=== PATIENT | male | born 1955 | race Caucasian/White ===

== ENCOUNTER 2017-06-18 21:11 | Inpatient (IN) | payer OTHER ==
[~2017-06-18] VITALS: Ht 172.7 cm; Wt 98.5 kg
[~2017-06-18 21:11] MED LIST: ADVAIR 250/501 DISK IH; ALBUTEROL SULF8.5 GM IH; CILOSTAZOL100 MG PO; COREG12.5 M1 PO; ERGOCALCIF50000 UNIT PO; LITE COAT ASPI325 M1 PO; PLAVIX75 MG PO; PREDNISONE20 MG PO; SYNTHROID200 MCG PO; SYNTHROID50 MCG PO; WELLBUTRIN SR150 MG PO; ZITHROMAX Z-PA250 MG PO
[2017-06-19] VITALS (10 sets, daily range): BP systolic 114–195; BP diastolic 61–80
[2017-06-19 17:00] LABS: METH RESISTANT S AUREUS PCR NEGATIVE (NEGATIVE)
[2017-06-19 17:41] LABS: PROBE CHECK PASS; SPECIMEN PROCESSING CONTROL PASS
[2017-06-20] VITALS: BP 104/59
[2017-06-20 02:00] VITALS: BP 136/76
[2017-06-20 05:00] VITALS: BP 127/62
[2017-06-20 07:00] VITALS: BP 178/75
[2017-06-20] MEDS ORDERED: HYDROCODON-ACE1 EAC7 PO (08:49)
[2017-06-20 09:00] VITALS: BP 90/68
[2017-06-20 10:00] VITALS: BP 118/58
== END 2017-06-20 10:22 | disposition home or self-care (01) | DRG 39 ==
LOC: ENRESERV 21:11 → 2SOUTH 06-19 09:35 → ENRESERV 06-19 13:12 → SDC 06-19 13:46 → EDSTATUS 06-19 13:46 → 2SOUTH 06-19 13:49 → ENRESERV 06-19 13:53 → 2SOUTH 06-19 14:43 → 4WEST 06-19 15:38 → ENRESERV 06-19 21:35 → 4WEST 06-20 10:22
PROVIDERS: Surgery
DX: I65.22 Occlusion and stenosis of left carotid artery (principal); I10 Essential (primary) hypertension; F17.200 Nicotine dependence, unspecified, uncomplicated; Z79.82 Long term (current) use of aspirin; Z80.1 Family history of malignant neoplasm of trachea, bronchus and lung
CPT/HCPCS: 87641; 93005; 94640; 94640 76; 94799; C1768; J0360; J0690; J1644; J1650; J2250; J2720; J2795; J3010; J7050; J7120

== ENCOUNTER 2017-08-14 09:43 | Day surgery (SDC) | payer OTHER ==
[~2017-08-14] VITALS: Ht 170.2 cm; Wt 98.9 kg
[~2017-08-14 09:43] MED LIST changes: +HYDROCODON-ACE1 EAC7 PO
[2017-08-14 11:06] VITALS: BP 185/85
== END 2017-08-14 17:33 | disposition left against medical advice (07) ==
LOC: 2SOUTH 09:43 → SDC 09:43 → 2SOUTH 12:30 → EDSTATUS 14:05 → 2SOUTH 14:50 → SDC 17:33
PROC: 03JYXZZ Inspection of Upper Artery, External Approach (ICD-10-PCS; principal; 2017-08-14)
DX: I65.23 Occlusion and stenosis of bilateral carotid arteries (principal); Z53.29 Procedure and treatment not carried out because of patient's decision for other reasons
CPT/HCPCS: 94640; J0330; J0690; J1644; J2250; J2720; J2795; J3010

== ENCOUNTER 2017-08-25 08:23 | Inpatient (IN) | payer OTHER ==
[~2017-08-25] VITALS: Ht 170.2 cm; Wt 98.9 kg
[2017-10-02 10:37] LABS: HEMATOCRIT 50.5 % (38.0-50.0); HEMOGLOBIN 16.4 G/DL (12.5-16.6); MCH 28.4 PG (29.0-34.0); MCHC 32.5 G/DL (30.0-36.0); MCV 87.4 FL (86-99); PLATELET COUNT 205 K/uL (156-360); RBC DIS.WIDTH-CV 12.8 % (11.8-14.6); RBC DIS.WIDTH-SD 40.8 % (39-53); RED BLOOD COUNT 5.78 M/uL (4.00-5.50); WHITE BLOOD COUNT 12.2 K/uL (4.1-10.2)
[2017-10-02 11:01] LABS: CHLORIDE 103 MEQ/L (99-109); POTASSIUM 4.1 MEQ/L (3.7-5.4); SODIUM 139 MEQ/L (136-147)
[2017-10-02 11:07] LABS: CREATININE 0.9 MG/DL (0.6-1.3); GFR ESTIMATE (CALCULATED) > 59 mL/min/ (58.99-99999); GLUCOSE 101 mg/dL (70-99); UREA NITROGEN (BUN) 15 mg/dL (9-23)
[2017-10-02 11:31] VITALS: BP 185/96
== END 2017-10-02 19:55 | disposition left against medical advice (07) | DRG 39 ==
LOC: 2SOUTH 08:23 → ENRESERV 10-01 22:09 → 2SOUTH 10-02 09:01
PROVIDERS: Surgery
DX: I65.21 Occlusion and stenosis of right carotid artery (principal); I10 Essential (primary) hypertension; E78.5 Hyperlipidemia, unspecified; I44.7 Left bundle-branch block, unspecified; J43.9 Emphysema, unspecified; E03.9 Hypothyroidism, unspecified; F17.200 Nicotine dependence, unspecified, uncomplicated; Z79.82 Long term (current) use of aspirin; Z79.01 Long term (current) use of anticoagulants
CPT/HCPCS: 80048; 85027; 93005; C1768; J0690; J1100; J1644; J2250; J2405; J2720; J2795; J3010; J7120